=== PATIENT | female | born 1950 | race Caucasian/White ===

== ENCOUNTER 2019-11-04 08:40 | Day surgery (SDC) | payer MEDICARE, OTHER ==
[~2019-11-04] VITALS: Ht 157.5 cm; Wt 52.9 kg
[~2019-11-04 08:40] MED LIST: BUPIVACAINE/EPI 0.5% 1:200K ONE; LIDOCAINE 1%-EPI 1:100K, 20ML ONE
[2019-11-04] MEDS ORDERED: NONE PER PT (09:25)
[2019-11-04] MEDS ORDERED: LACTATED RINGERS 1,000 ML IV SCH (09:26)
[2019-11-04] MEDS ORDERED: CHLORHEXIDINE 15 ML UDC MM ONE (09:30)
[2019-11-04 09:51] VITALS: BP 125/77
[2019-11-04] MEDS ORDERED: MIDAZOLAM 1 MG/ML, 2ML ONE (09:54)
[2019-11-04] MEDS ORDERED: FENTANYL PF 100 MCG/2ML ONE (09:54)
[2019-11-04] MEDS ORDERED: NEOSTIGMINE 1 MG/ML, 10ML ONE (09:56)
[2019-11-04] MEDS ORDERED: GLYCOPYRROLATE 0.2MG/1ML, 5ML ONE (09:56)
[2019-11-04] MEDS ORDERED: SUCCINYLCHOLINE 20 MG/ML, 10ML ONE ×2 (09:56)
[2019-11-04] MEDS ORDERED: DEXAMETHASONE 4 MG/ML, 1ML ONE (09:56)
[2019-11-04] MEDS ORDERED: ROCURONIUM 10MG/ML,5ML ONE (09:56)
[2019-11-04] MEDS ORDERED: PROPOFOL 10 MG/ML, 20ML ONE (09:56)
[2019-11-04] MEDS ORDERED: ONDANSETRON 2MG/ML, 2ML ONE (09:56)
[2019-11-04] MEDS ORDERED: CEFAZOLIN 1,000 MG ONE (09:56)
[2019-11-04] MEDS ORDERED: BUPIVACAINE/EPI 0.5% 1:200K INFIL ONE (10:50)
[2019-11-04] MEDS ORDERED: LIDOCAINE 1%-EPI 1:100K, 30ML INFIL ONE (10:50)
[2019-11-04] MEDS ORDERED: hydrALAzine 20 MG/ML, 1ML IV PRN (11:00)
[2019-11-04] MEDS ORDERED: KETOROLAC 30 MG/1 ML IV PRN (11:00)
[2019-11-04] MEDS ORDERED: PROMETHAZINE 25 MG/ML, 1ML IV PRN (11:00)
[2019-11-04] MEDS ORDERED: FENTANYL PF 100 MCG/2ML IV PRN (11:00)
[2019-11-04] MEDS ORDERED: OXYcodone 5 MG/5 ML ORAL.SOL UDC PO PRN (11:00)
[2019-11-04] MEDS ORDERED: HYDROmorphone 2 MG/ML, 1ML IVPush PRN (11:00)
[2019-11-04] MEDS ORDERED: ALBUTEROL SULFATE 2.5 MG/3 ML NPPB PRN (11:00)
[2019-11-04] MEDS ORDERED: DIAZEPAM 5 MG/ML, 2ML IVPush PRN (11:00)
[2019-11-04] MEDS ORDERED: ACETAMINOPHEN 325 MG TABLET PO PRN (11:00)
[2019-11-04] MEDS ORDERED: LABETALOL 5MG/ML, 20ML IV PRN (11:00)
[2019-11-04] MEDS ORDERED: MEPERIDINE/PF 25MG/0.5ML IVPush PRN (11:00)
== END 2019-11-04 15:30 | disposition home or self-care (01) ==
LOC: OUT 08:40
PROVIDERS: ATTEND Orthopaedic Surgery
DX: S46.011A Strain of muscle(s) and tendon(s) of the rotator cuff of right shoulder, initial encounter (principal); Z20.828 Contact with and (suspected) exposure to other viral communicable diseases; S43.431A Superior glenoid labrum lesion of right shoulder, initial encounter; S46.111A Strain of muscle, fascia and tendon of long head of biceps, right arm, initial encounter; G89.18 Other acute postprocedural pain; M65.811 Other synovitis and tenosynovitis, right shoulder; M75.41 Impingement syndrome of right shoulder; M19.011 Primary osteoarthritis, right shoulder; Z79.899 Other long term (current) drug therapy; Z86.19 Personal history of other infectious and parasitic diseases; Z87.891 Personal history of nicotine dependence; Z82.61 Family history of arthritis; X58.XXXA Exposure to other specified factors, initial encounter; Y93.89 Activity, other specified; Y92.89 Other specified places as the place of occurrence of the external cause; Y99.8 Other external cause status
CPT/HCPCS: 29823; 29824; 29826; 29827; 29828; 36415; 64415; 87635; 93005; C1713; J0330; J0690; J1100; J2250; J2405; J2704; J2710; J3010; J3490; J7120

== ENCOUNTER 2020-02-28 12:07 | Outpatient (CLI) | payer MEDICARE, OTHER ==
[~2020-02-28 12:07] MED LIST changes: -BUPIVACAINE/EPI 0.5% 1:200K ONE; -LIDOCAINE 1%-EPI 1:100K, 20ML ONE; +NONE PER PT
== END 2020-02-28 23:59 | disposition home or self-care (01) ==
LOC: CFH 12:07
PROVIDERS: ATTEND Internal Medicine
DX: Z12.31 Encounter for screening mammogram for malignant neoplasm of breast (principal); Z13.820 Encounter for screening for osteoporosis; N95.9 Unspecified menopausal and perimenopausal disorder; M85.80 Other specified disorders of bone density and structure, unspecified site
CPT/HCPCS: 77063; 77067; 77080